=== PATIENT | female | born 1945 | race Two or more races ===

== ENCOUNTER 2018-03-13 06:00 | Day surgery (SDC) | payer OTHER ==
[~2018-03-13 06:00] MED LIST: ACUPRIL; CRESTOR20 MG; GABAPENTIN600 MG PO
[2018-03-13] MEDS ORDERED: DUI500 PO (13:50)
[2018-03-13] MEDS ORDERED: TRAM1TAB98 PO (13:50)
== END 2018-03-13 17:20 | disposition home or self-care (01) ==
LOC: CIR.AMB 06:00
DX: M23.322 Other meniscus derangements, posterior horn of medial meniscus, left knee (principal); M17.12 Unilateral primary osteoarthritis, left knee; M65.862 Other synovitis and tenosynovitis, left lower leg

== ENCOUNTER 2018-07-17 13:04 | Emergency (ER) | payer OTHER ==
[~2018-07-17] VITALS: Ht 149.9 cm; Wt 63.5 kg
[~2018-07-17 13:04] MED LIST changes: +DUI500 PO; +TRAM1TAB98 PO
[2018-07-17] MEDS ORDERED: ZOCOR20 MG (13:41)
== END 2018-07-17 22:05 | disposition home or self-care (01) ==
LOC: ER 13:04
DX: M25.562 Pain in left knee (principal)